=== PATIENT | male | born 1955 | race Caucasian/White ===

== ENCOUNTER 2019-10-26 13:17 | Emergency (ER) | payer OTHER ==
[~2019-10-26] VITALS: Ht 172.7 cm; Wt 59.0 kg
[~2019-10-26 13:17] MED LIST: ALBUTEROL2.5 MG/0.5 INH; BACTRIM DS TAB1 EACH PO; BACTROBAN NASAL1 GM NASAL; ERYTHROMYCIN E3.5 G1 OPHTHALMIC; HYDROCHLOROTH12.5 M1 PO; NORCO 5-325 TA1 EACH PO; PENICILLIN VK500 M1 PO; PERIDEX 0.12%473 M1 SSP; TRAMADOL 50 MG50 MG PO
[2019-10-26 13:20] VITALS: BP 124/90
[2019-10-26] MEDS ORDERED: INHALER (13:24)
[2019-10-26] MEDS ORDERED: PENICILLIN V P500 MG PO (13:53)
[2019-10-26] MEDS ORDERED: IBUPROFEN 600600 M1 PO (13:53)
== END 2019-10-26 14:04 | disposition home or self-care (01) ==
LOC: ER 13:17
DX: K02.9 Dental caries, unspecified (principal); K05.00 Acute gingivitis, plaque induced; K13.79 Other lesions of oral mucosa; J44.9 Chronic obstructive pulmonary disease, unspecified; F17.210 Nicotine dependence, cigarettes, uncomplicated

== ENCOUNTER 2021-03-12 13:45 | Emergency (ER) | payer OTHER ==
[~2021-03-12] VITALS: Ht 172.7 cm; Wt 59.0 kg
[~2021-03-12 13:45] MED LIST changes: +IBUPROFEN 600600 M1 PO; +INHALER; +PENICILLIN V P500 MG PO
[2021-03-12] MEDS ORDERED: NORCO 10-325 T1 EACH PO (14:34)
[2021-03-12] MEDS ORDERED: CLEOCIN HCL300 MG PO (14:35)
[2021-03-12 15:12] VITALS: BP 154/92
== END 2021-03-12 15:14 | disposition home or self-care (01) ==
LOC: ER 13:45
DX: K04.7 Periapical abscess without sinus (principal); J44.9 Chronic obstructive pulmonary disease, unspecified; F17.210 Nicotine dependence, cigarettes, uncomplicated; Z79.899 Other long term (current) drug therapy

== ENCOUNTER 2021-09-01 17:32 | Emergency (ER) | payer OTHER ==
[~2021-09-01 17:32] MED LIST changes: +CLEOCIN HCL300 MG PO; +NORCO 10-325 T1 EACH PO
== END 2021-09-01 18:58 | disposition left against medical advice (07) ==
LOC: ER 17:32
DX: M71.0 Abscess of bursa (principal); Z53.21 Procedure and treatment not carried out due to patient leaving prior to being seen by health care provider